=== PATIENT | female | born 1950 | race Two or more races ===

== ENCOUNTER → 2023-06-29 06:40 | Day surgery (SDC) | payer MEDICAID, SELFPAY | LOC: GI 06:40 | PROVIDERS: ATTENDING PHYSICIAN Surgery | DX: K62.4 Stenosis of anus and rectum (principal); K62.6 Ulcer of anus and rectum; Z85.048 Personal history of other malignant neoplasm of rectum, rectosigmoid junction, and anus | CPT/HCPCS: 45335 ==

== ENCOUNTER → 2023-07-06 12:14 | Outpatient (REF) | payer MEDICAID, SELFPAY | LOC: MRI 3T 12:14 | PROVIDERS: ATTENDING PHYSICIAN Surgery; FAMILY PHYSICIAN Internal Medicine | DX: C20 Malignant neoplasm of rectum (principal) | CPT/HCPCS: 72197; A9575 ==

== ENCOUNTER → 2023-07-11 13:21 | Outpatient (REF) | payer MEDICAID, SELFPAY | LOC: HWRAD 13:21 | PROVIDERS: ATTENDING PHYSICIAN Surgery | DX: C20 Malignant neoplasm of rectum (principal) | CPT/HCPCS: 71260; 74177; Q9967 ==

== ENCOUNTER → 2023-09-12 11:44 | Outpatient (REF) | payer MEDICAID, SELFPAY | LOC: RAD 11:44 | PROVIDERS: ATTENDING PHYSICIAN Surgery; FAMILY PHYSICIAN Internal Medicine | DX: C20 Malignant neoplasm of rectum (principal) | CPT/HCPCS: 71270; Q9967 ==

== ENCOUNTER 2023-09-21 06:11 | Day surgery (SDC) | payer MEDICAID, SELFPAY ==
[2023-09-21 06:55] VITALS: BMI 42.5
[2023-09-21 07:11] VITALS: BMI 42.5
[2023-09-21 07:12] VITALS: BP 146/78
[2023-09-21 09:22] VITALS: BP 133/61
[2023-09-21 09:37] VITALS: BP 119/58
[2023-09-21 09:48] VITALS: BP 130/76
== END 2023-09-21 09:48 | disposition home or self-care (01) ==
LOC: GI 06:11
PROVIDERS: ATTENDING PHYSICIAN Surgery
DX: Z08 Encounter for follow-up examination after completed treatment for malignant neoplasm (principal)
CPT/HCPCS: 45330

== ENCOUNTER → 2024-06-13 09:14 | Outpatient (REF) | payer MEDICAID, SELFPAY | LOC: RAD 09:14 | PROVIDERS: ATTENDING PHYSICIAN Surgery; FAMILY PHYSICIAN Internal Medicine | DX: C20 Malignant neoplasm of rectum (principal) | CPT/HCPCS: 71260; 74177; Q9967 ==

== ENCOUNTER 2024-06-20 06:45 | Day surgery (SDC) | payer MEDICAID, SELFPAY ==
[2024-06-20 13:11] VITALS: BMI 40.0
[2024-06-20 13:28] VITALS: BP 152/72
[2024-06-20 13:41] VITALS: BMI 40.0
[2024-06-20 14:40] VITALS: BP 132/77
[2024-06-20 14:45] VITALS: BP 122/68
[2024-06-20 15:00] VITALS: BP 136/65
== END 2024-06-20 15:19 | disposition home or self-care (01) ==
LOC: SDS 06:45
PROVIDERS: ATTENDING PHYSICIAN Surgery
DX: Z08 Encounter for follow-up examination after completed treatment for malignant neoplasm (principal); K63.89 Other specified diseases of intestine; K57.30 Diverticulosis of large intestine without perforation or abscess without bleeding; Z85.048 Personal history of other malignant neoplasm of rectum, rectosigmoid junction, and anus
CPT/HCPCS: 45378

== ENCOUNTER 2024-11-28 06:16 | Day surgery (SDC) | payer OTHER, SELFPAY | END 2024-11-28 14:17 | disposition home or self-care (01) | LOC: GI 06:16 | PROVIDERS: ATTENDING PHYSICIAN Surgery; FAMILY PHYSICIAN Nurse Practitioner Family | DX: Z12.11 Encounter for screening for malignant neoplasm of colon (principal); Z85.048 Personal history of other malignant neoplasm of rectum, rectosigmoid junction, and anus | CPT/HCPCS: G0104 ==

== ENCOUNTER → 2025-02-12 09:15 | Outpatient (REF) | payer OTHER, SELFPAY | LOC: MRI 3T 09:15 | PROVIDERS: ATTENDING PHYSICIAN Surgery | DX: R91.1 Solitary pulmonary nodule (principal); Z85.048 Personal history of other malignant neoplasm of rectum, rectosigmoid junction, and anus | CPT/HCPCS: 72197; A9575 ==